=== PATIENT | female | born 1960 | race Caucasian/White ===

== ENCOUNTER 2022-02-20 10:26 | Outpatient (CLI) | payer SELFPAY ==
--- NOTE | 2022-02-20 10:39 | MM_ITS ---
WS: [id number] BILATERAL SCREENING DIGITAL BREAST TOMOSYNTHESIS MAMMOGRAM WITH CAD HISTORY: SCREENING COMPARISON: 04/29/2018 and 07/16/2017 Bilateral CC and MLO views with tomosynthesis and synthetic mammography submitted. Computer aided det ection analyzed. Breast composition: There are scattered areas of fibroglandular density. No suspicious masses, microc alcifications or architectural distortion. Biopsy clip in the anterior upper outer quadrant RIGHT axel ast. MM/[place] [id number] IMPRESSION: BI-RADS: 2-Benign FOLLOW UP: 1 Year Follow-up
== END 2022-02-20 10:27 | disposition home or self-care (01) ==
PROVIDERS: Family Provider Family Medicine; Visit Provider Family Medicine
DX: Z12.31 Encounter for screening mammogram for malignant neoplasm of breast (principal)
CPT/HCPCS: 77063; 77067

== ENCOUNTER → 2024-11-27 13:39 | Outpatient (BNVA) | payer MEDICARE, SELFPAY | PROVIDERS: Family Provider Family Medicine; Referring Provider Family Medicine; Visit Provider Nurse Practitioner Family | DX: L98.8 Other specified disorders of the skin and subcutaneous tissue (principal); L57.8 Other skin changes due to chronic exposure to nonionizing radiation; L81.4 Other melanin hyperpigmentation; D23.72 Other benign neoplasm of skin of left lower limb, including hip; L57.0 Actinic keratosis; L82.1 Other seborrheic keratosis; Z80.8 Family history of malignant neoplasm of other organs or systems | CPT/HCPCS: 99203 ==

== ENCOUNTER 2024-12-18 12:44 | Outpatient (CLI) | payer MEDICARE, SELFPAY ==
--- NOTE | 2024-12-18 13:20 | MM_ITS ---
WS: [id number] BILATERAL SCREENING DIGITAL TOMOSYNTHESIS MAMMOGRAM WITH CAD HISTORY: Screening COMPARISON: 02/20/2022, 04/29/2018 Bilateral CC and MLO views with tomosynthesis and synthetic mammography submitted. Computer aided detection analyzed. Breast composition: The breasts are almost entirely fatty. No suspicious masses, microcalcifications or architectural distortion. Biopsy clip upper outer quadrant RIGHT breast. No suspicious mass or grouping of calcifications. MM/MM scr BI tomosynthesis [id number] IMPRESSION: BI-RADS: 2 - Benign. FOLLOW UP: 1 Year Follow-up
== END 2024-12-18 12:45 | disposition home or self-care (01) ==
LOC: RAD 12:48
PROVIDERS: Family Provider Family Medicine; PCP Family Medicine; Visit Provider Family Medicine
DX: Z12.31 Encounter for screening mammogram for malignant neoplasm of breast (principal); R92.313 Mammographic fatty tissue density, bilateral breasts
CPT/HCPCS: 77063; 77067

== ENCOUNTER → 2024-12-22 10:28 | Outpatient (BNVA) | payer MEDICARE, OTHER, SELFPAY | PROVIDERS: Family Provider Family Medicine; PCP Family Medicine; Referring Provider Family Medicine; Visit Provider Student in an Organized Health Care Education/Training Program | DX: Z12.11 Encounter for screening for malignant neoplasm of colon (principal) | CPT/HCPCS: 80053; 80061; 82306; 82607; 84443; 85025; 99024; 99204 ==

== ENCOUNTER 2025-01-13 08:35 | Day surgery (SDC) | payer MEDICARE, SELFPAY ==
[2025-01-13 08:55] VITALS: BP 137/105; PULSE 113; RESP 19; TEMP 37; O2SAT 97; BMI 27.4
[2025-01-13] MEDS: sodium chloride 0.9% 500 ML 30 ML IV (09:05)
--- NOTE | 2025-01-13 09:40 | ANES.PREANE2 ---
Pre-Anesthetic Assessment Height/Weight: Height 1.63 m Weight 72.575 kg Temp Pulse Resp BP Pulse Ox O2 Del Method 98.6 F 113 H 19 H 137/105 97 Room Air 01/13/25 08:55 01/13/25 08:55 01/13/25 08:55 01/13/25 08:55 01/13/25 08:55 01/13/25 08:55 Preop Diagnosis: screening Operation Date: 01/13/25 10:00 Proposed Procedures p Colonoscopy 81671 G0121 Z12.11(Not Applicable) - Gustabo Del Rosario MD Familial anesthetic complications: none Was Beta Glenn taken within 24 hours: N/A Was Clonidine taken within 24 hours: N/A Last intake: Intake Last Liquid Date 01/12/25 Last Liquid Time 00:00 Last Solid Date 12/22/24 Last Solid Time 10:00 Social Alcohol Marijuana gummies Exam alert, oriented x 3, clear to auscultation bilaterally and regular rate & rhythm Airway Submandibular: within normal limits Cervical ROM: within normal limits Mallampati: Class II Dentition: full History/ROS No significant history except as noted and No significant complaints Pulmonary None reported CV/HEM None reported None reported Hepatic None reported GI None reported Metabolic Thyroid Disease [facility] None reported Neuropsych Anxiety Anesthetic Plan ASA status: 2 Anesthesia: MAC Risk of > 500 ml blood loss (7ml/kg in children): No Medications/Allergies Home Medications ?Medication ?Instructions ?Recorded ?Confirmed ?Last Taken ?Type ascorbic acid (vitamin C) 500 mg 500 mg PO DAILY 12/15/24 01/13/25 01/11/25 History capsule cholecalciferol (vitamin D3) 25 50 mcg PO DAILY 12/15/24 01/13/25 01/11/25 History mcg (1,000 unit) capsule multivitamin 1 tab PO DAILY 12/15/24 01/13/25 01/11/25 History levothyroxine 50 mcg tablet 50 mcg PO DAILY #30 tabs 01/05/25 01/13/25 01/11/25 Rx (Euthyrox) paroxetine HCl 10 mg tablet 10 mg PO DAILY #30 tabs 01/06/25 01/13/25 01/11/25 Rx Allergies Allergy/AdvReac Type Severity Reaction Status Date / Time No Known Allergies Allergy Verified 12/22/24 10:34 Current Medications Generic Name Dose Route Start Last Admin Trade Name Freq PRN Reason Stop Dose Admin Sodium Chloride 500 mls @ 30 mls/hr 01/13/25 09:00 01/13/25 09:05 Sodium Chloride 0.9% IV 01/14/25 01:39 30 mls/hr .[id number] ERICK Administration PFSH Anesthesia Medical History Anxiety Surgical History Hx of breast biopsy Left breast biopsy Hx of squamous cell carcinoma Left arm - 2016 Hx of hysterectomy With BLO - 2002 History of lumbar surgery Low back surgery x 3 - had a knick in the dura leading to a leak and repeat surgery. History of cholecystectomy 1993 Hx of tubal ligation 1980 Family History Mother , in December 2023 CAD (coronary artery disease), Onset Age: 71 [place] x 2 Melanoma Squamous cell carcinoma Father , Gallbladder removed, had a blood clot a week later when he had COVID and . He had COVID pneumonia during this. 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
--- NOTE | 2025-01-13 11:15 | W.PM.OPSUD ---
Surgery/Procedure H&P Update DATE OF PROCEDURE: January 13, 2025 DATE H&P PERFORMED: 12/22/24 H&P UPDATE INFORMATION: I have reviewed H&P completed within last 30 days, I have examined patient prior to procedure and No changes to prior documentation PREOP DIAGNOSIS: screening PLANNED PROCEDURE: Operation Date: 01/13/25 10:00 Proposed Procedures p Colonoscopy 94649 G0121 Z12.11(Not Applicable) - Gustabo Del Rosario MD
[2025-01-13 11:37] VITALS: BP 124/89; PULSE 93; RESP 16; TEMP 36.4; O2SAT 96
[2025-01-13 11:51] VITALS: BP 151/107; PULSE 94; RESP 16; O2SAT 97
--- NOTE | 2025-01-13 12:05 | ANE.PACU2 ---
Inpatient post-anesthesia follow up: Airway intact: Yes Vital signs: Temperature 97.6 F Pulse Rate 94 Respiratory Rate 16 Blood Pressure 151/107 Pulse Oximetry 97 Oxygen Delivery Me thod Room Air Oxygen Flow Rate Fraction of Inspir ed Oxygen Hydration adequate: Yes Nausea and vomiting: No Pain level: 1 Mental status: Baseline
== END 2025-01-13 12:08 | disposition home or self-care (01) ==
PROVIDERS: PCP Family Medicine; Visit Provider Student in an Organized Health Care Education/Training Program
PROC: 0DJD8ZZ Inspection of Lower Intestinal Tract, Via Natural or Artificial Opening Endoscopic (ICD-10-PCS; CPT 45378; principal; 2025-01-13 10:00)
DX: Z12.11 Encounter for screening for malignant neoplasm of colon (principal); D12.4 Benign neoplasm of descending colon; Z79.899 Other long term (current) drug therapy; Z79.890 Hormone replacement therapy
CPT/HCPCS: 45385; 88305; J2704; J7040

== ENCOUNTER → 2025-02-12 14:16 | Outpatient (BNVA) | payer MEDICARE, OTHER, SELFPAY | PROVIDERS: PCP Family Medicine; Visit Provider Student in an Organized Health Care Education/Training Program | DX: Z09 Encounter for follow-up examination after completed treatment for conditions other than malignant neoplasm (principal) | CPT/HCPCS: 99213 ==

== ENCOUNTER → 2025-04-16 11:39 | Outpatient (BNVA) | payer MEDICARE, OTHER, SELFPAY | PROVIDERS: PCP Family Medicine; Visit Provider Family Medicine | DX: E03.9 Hypothyroidism, unspecified (principal) | CPT/HCPCS: 84439; 84443 ==

== ENCOUNTER 2025-05-15 11:22 | Outpatient (CLI) | payer MEDICARE, OTHER, SELFPAY ==
--- NOTE | 2025-05-15 11:25 | XR_ITS ---
WS: [email or web address] Exam: XR shoulder RT min 2V* [id number] Date/Time of Exam: 05/15/2025 11:31 AM Reason For Exam: Right shoulder pain DLP: No acute fracture. The joints are relatively well-maintained. Normal soft tissues. XR/XR shoulder RT min 2V* [id number] IMPRESSION: 1. Negative RIGHT shoulder.
--- NOTE | 2025-05-15 11:25 | XR_ITS ---
WS: [email or web address] Exam: [place] [id number] Date/Time of Exam: 05/15/2025 11:31 AM Reason For Exam: Right arm pain DLP: No fracture noted. Articular relationships at the shoulder and elbow appear normal. Normal soft tissues. XR/[place] [id number] IMPRESSION: 1. Normal RIGHT humerus.
--- NOTE | 2025-05-15 11:25 | XR_ITS ---
WS: [email or web address] Exam: XR knee RT 3V* [id number] Date/Time of Exam: 05/15/2025 11:31 AM Reason For Exam: Knee pain right No fracture. There is chondrocalcinosis of the medial and lateral menisci. Slight narrowing of the medial joint space. No joint effusion. Unremarkable soft tissues. XR/XR knee RT 3V* [id number] IMPRESSION: 1. Chondrocalcinosis of the medial and lateral menisci. Mild degenerative narro wing of the medial joint compartment.
== END 2025-05-15 11:23 | disposition home or self-care (01) ==
LOC: RAD 11:23
PROVIDERS: PCP Family Medicine; Visit Provider Family Medicine
DX: M79.601 Pain in right arm (principal); M25.511 Pain in right shoulder; M11.261 Other chondrocalcinosis, right knee; M17.11 Unilateral primary osteoarthritis, right knee
CPT/HCPCS: 73030; 73060; 73562

== ENCOUNTER → 2025-06-02 13:51 | Outpatient (BNVA) | payer MEDICARE, OTHER, SELFPAY | PROVIDERS: PCP Family Medicine; Visit Provider Nurse Practitioner Family | DX: L82.1 Other seborrheic keratosis (principal); L81.4 Other melanin hyperpigmentation; L57.8 Other skin changes due to chronic exposure to nonionizing radiation; L98.8 Other specified disorders of the skin and subcutaneous tissue; D23.72 Other benign neoplasm of skin of left lower limb, including hip; Z80.8 Family history of malignant neoplasm of other organs or systems; Z08 Encounter for follow-up examination after completed treatment for malignant neoplasm; Z85.828 Personal history of other malignant neoplasm of skin; L57.0 Actinic keratosis | CPT/HCPCS: 17004; 99214 ==

== ENCOUNTER 2025-06-22 12:46 | Outpatient (CLI) | payer MEDICARE, OTHER, SELFPAY ==
--- NOTE | 2025-06-22 13:00 | MR_ITS ---
WS: [id number] MRI RIGHT SHOULDER HISTORY: Right shoulder pain COMPARISON: Radiograph 05/15/2025 TECHNIQUE: Multiplanar sequences of the shoulder joint are submitted. Moderate AC joint arthritis. Small amount of fluid in the subacromial subdeltoid bursa. Minimal subacromial impingement. No os acromion. Fluid in the biceps tendon sheath. No dislocation of the biceps tendon from the bicipital groove. Small amount of fluid surrounding the humeral head extending into the axillary pouch. Supraspinatus tendon is torn and retracted to the medial humeral head. There is a fluid gap directly over the humeral head. A portion of the distal supraspinatus tendon is still present with an interstitial tear. Marked tendinopathy in the distal subscapularis tendon. There is fluid in the rotator cuff interval. Mild atrophy of the supraspinatus muscle. Intrasubstance degeneration in the labrum. MR/MR shoulder RT wo con* [id number] IMPRESSION: 1. Moderate AC joint arthritis. 2. Mild subacromial impingement. 3. Fluid in the biceps tendon sheath but no tear. 4. Complete tear of the supraspinatus tendon with retraction to the medial hum eral head. 5. There is fluid extending into the rotator cuff interval. Biceps tendon over the roof of the rotator cuff interval appears to be intact. 6. Small joint effusion surrounding the humeral head. 7. Tendinopathy distal subscapularis tendon. 8. Exam is compromised by motion.
--- NOTE | 2025-06-22 13:45 | MR_ITS ---
WS: [id number] MRI RIGHT KNEE HISTORY: Right knee pain COMPARISON: Radiograph 05/15/2025 Anterior cruciate ligament: Short segment interstitial tear in the distal ACL. No full-thickness tear. Posterior cruciate ligament: Intact. Medial collateral ligament: Intact. Posterior lateral corner structures: Intact. Medial menisci: Intact. Normal signal, size and shape. Lateral meniscus: Intact. Normal signal, size and shape. Extensor mechanism: Distal quadriceps tendon and patellar tendons are intact. Fluid and soft tissue: No significant joint effusion. Superficial fluid collection anterior to the medial patellar retinaculum. Fluid collection measures 3.7 x 0.8 x 4.7 cm and has a few small septations. Subcutaneous edema along the anterior knee extending over the patellar tendon. No Hamm's cyst. Osseous and articular structures: Patellofemoral compartment: Normal. Medial compartment: Mild narrowing of the medial compartment. Mild thinning and fissuring of the cartilage. No full-thickness defects. Lateral compartment: Mild narrowing of the lateral compartment. Superficial defect along the central lateral tibial plateau. No underlying marrow edema. Very subtle increased signal extending through the tibial metaphysis. There is no fracture identified. MR/MR knee RT wo con* [id number] IMPRESSION: 1. Short segment interstitial tear distal ACL. No complete tear. 2. Very subtle marrow edema along the tibial metaphysis. No fracture. 3. No joint effusion. 4. Superficial fluid collection anterior to the medial patellar retinaculum me asures 3.7 x 0.8 x 4.7 cm with adjacent subcutaneous edema. 5. Mild narrowing of the medial and lateral compartments. 6. Superficial chondromalacia involving the central lateral tibial plateau.
== END 2025-06-22 12:47 | disposition home or self-care (01) ==
LOC: RAD 12:49
PROVIDERS: PCP Family Medicine; Visit Provider Family Medicine
DX: S83.31XA Tear of articular cartilage of right knee, current, initial encounter (principal); M19.011 Primary osteoarthritis, right shoulder; R60.9 Edema, unspecified; X58.XXXA Exposure to other specified factors, initial encounter; M94.261 Chondromalacia, right knee; M62.511 Muscle wasting and atrophy, not elsewhere classified, right shoulder; S46.811A Strain of other muscles, fascia and tendons at shoulder and upper arm level, right arm, initial encounter
CPT/HCPCS: 73221; 73721

== ENCOUNTER → 2025-06-30 14:04 | Outpatient (BNVA) | payer MEDICARE, OTHER, SELFPAY | PROVIDERS: PCP Family Medicine; Visit Provider Student in an Organized Health Care Education/Training Program | DX: M75.101 Unspecified rotator cuff tear or rupture of right shoulder, not specified as traumatic (principal); M19.011 Primary osteoarthritis, right shoulder; M75.41 Impingement syndrome of right shoulder; M75.21 Bicipital tendinitis, right shoulder | CPT/HCPCS: 73030; 99204 ==

== ENCOUNTER → 2025-08-06 10:16 | Day surgery (SDC) | payer MEDICARE, BC, SELFPAY ==
[2025-08-06] VITALS (10 sets, daily range): BP systolic 102–162; BP diastolic 79–102; PULSE 64–80; RESP 17–22; TEMP 36.1–36.3; O2SAT 89–96; BMI 27.4
--- NOTE | 2025-08-06 10:35 | ANES.PREANE2 ---
Pre-Anesthetic Assessment Height/Weight: Height 5 ft 4 in Preop Diagnosis: Rotator cuff tear Operation Date: 08/06/25 12:00 Proposed Procedures p Arthroscopic Shoulder Subacromial Decomp(Right) - Mu Lin DO s Arthroscopic Distal Clavicle Resection Arthroscopic AC Joint Resection(Right) - Mu Lin DO s Arthroscopic Shoulder/ rotatoat cuff Debridement vs rotator cuff repair(Right) - Mu Lin, DO Was Beta Glenn taken within 24 hours: N/A Was Clonidine taken within 24 hours: N/A Social No alcohol and No tobacco Exam alert, oriented x 3, clear to auscultation bilaterally and regular rate & rhythm Airway Submandibular: within normal limits Cervical ROM: within normal limits Mallampati: Class II Dentition: loose Comments: Comments: poor dentition, can see most of her roots. 1 tooth, front left bottom is loose Anesthetic Plan ASA status: 2 Anesthesia: General and Regional (specify below) Other: No prior issues with anesthesia NPO since yesterday evening History of hypothyroidism on Synthroid Denies any cardiac or pulmonary issues METs greater than 4 Plan for general anesthesia with preoperative block Medications/Allergies Home Medications ?Medication ?Instructions ?Recorded ?Confirmed ?Last Taken ?Type ascorbic acid (vitamin C) 500 mg 500 mg PO DAILY 12/15/24 08/05/25 08/05/25 History capsule cholecalciferol (vitamin D3) 25 50 mcg PO DAILY 12/15/24 08/05/25 08/05/25 History mcg (1,000 unit) capsule multivitamin 1 tab PO DAILY 12/15/24 08/05/25 08/05/25 History paroxetine HCl 40 mg tablet 40 mg PO DAILY #30 tabs 05/15/25 08/05/25 08/05/25 Rx oxybutynin chloride 5 mg tablet 5 mg PO BID #60 tabs 07/14/25 08/06/25 08/06/25 09:00 Rx hydrocodone 5 mg-acetaminophen 325 1 tab PO BID PRN pain 15 days #30 07/23/25 08/06/25 08/06/25 09:00 Rx mg tablet tabs naproxen 500 mg tablet 500 mg PO BID PRN pain #60 tabs 07/27/25 08/05/25 07/22/25 Rx levothyroxine 50 mcg tablet 50 mcg PO DAILY 08/05/25 08/06/25 08/06/25 09:00 History hydrocodone 5 mg-acetaminophen 325 1 tab PO Q6H PRN pain 5 days #20 08/06/25 Unknown Rx mg tablet tabs Allergies Allergy/AdvReac Type Severity Reaction Status Date / Time No Known Allergies Allergy Verified 08/06/25 10:37 [facility] Anesthesia Medical History Anxiety Surgical History Hx of breast biopsy Left breast biopsy Hx of squamous cell carcinoma Left arm - 2016 Hx of hysterectomy With BLO - 2002 History of lumbar surgery Low back surgery x 3 - had a knick in the dura leading to a leak and repeat surgery. History of cholecystectomy 1993 Hx of tubal ligation 1980 Family History Mother , in December 2023 CAD (coronary artery disease), Onset Age: 71 [place] x 2 Melanoma Squamous cell carcinoma Father , Gallbladder removed, had a blood clot a week later when he had COVID and . He had COVID pneumonia during this. COVID Social History Smoking and tobacco/nicotine status: never used tobacco/nicotine Alcohol intake: current Alcohol intake frequency: few times a week Alcohol type: wine Substance/Drug Use: current Other substance/drug use details: Marijuana 2x/day Current occupational status: retired Previous occupational history: Homemaker - [employer]
[2025-08-06] MEDS: acetaminophen 1,000 MG/100 ML PIGGYBACK 400 MG IV (11:20)
--- NOTE | 2025-08-06 11:56 | W.PM.OPSFHP ---
Same Day Surgery H&P Indication for Procedure/HPI DATE OF PROCEDURE: August 06, 2025 CHIEF COMPLAINT/INDICATIONFOR SURGICAL PROCEDURE: Right shoulder rotator cuff tear, biceps tendinitis, AC joint arthritis, subacromial impingement PREOP DIAGNOSIS: Right shoulder rotator cuff tear, biceps tendinitis, AC joint arthritis, kidd PLANNED PROCEDURE: Operation Date: 08/06/25 12:00 Proposed Procedures p Arthroscopic Shoulder Subacromial Decomp(Right) - Mu Lin DO s Arthroscopic Distal Clavicle Resection Arthroscopic AC Joint Resection(Right) - Mu Lin DO s Arthroscopic Shoulder/ rotatoat cuff Debridement vs rotator cuff repair(Right) - Mu Lin DO Medications/Allergies* Home Medications ?Medication ?Instructions ?Recorded ?Confirmed ?Type ascorbic acid (vitamin C) 500 mg 500 mg PO DAILY 12/15/24 08/05/25 History capsule cholecalciferol (vitamin D3) 25 50 mcg PO DAILY 12/15/24 08/05/25 History mcg (1,000 unit) capsule multivitamin 1 tab PO DAILY 12/15/24 08/05/25 History levothyroxine 50 mcg tablet 50 mcg PO DAILY 08/05/25 08/06/25 History Allergies/Adverse Reactions Allergy/AdvReac Type Severity Reaction Status Date / Time No Known Allergies Allergy Verified 08/06/25 10:37 Current Medications: Generic Name Dose Route Start Last Admin Trade Name Freq PRN Reason Stop Dose Admin Sodium Chloride 1,000 mls @ 30 mls/hr 08/06/25 10:45 08/06/25 11:19 Sodium Chloride 0.9% IV 08/07/25 10:44 30 mls/hr .[id number] ERICK Administration Pertinent History/Comorbid Conditions* Medical History (Updated 07/04/25 @ 22:53 by Mu Lin DO) Anxiety Surgical History (Updated 12/15/24 @ 14:21 by James Gutierrez MD) Hx of breast biopsy Left breast biopsy Hx of squamous cell carcinoma Left arm - 2016 Hx of hysterectomy With BLO - 2002 History of lumbar surgery Low back surgery x 3 - had a knick in the dura leading to a leak and repeat surgery. History of cholecystectomy 1993 Hx of tubal ligation 1980 Family History (Updated 12/15/24 @ 14:16 by James Gutierrez MD) Father, Gallbladder removed, had a blood clot a week later when he had COVID and . He had COVID pneumonia during this. Mother, in December 2023 COVID Father CAD (coronary artery disease) Mother, Onset Age: 71 [place] x 2 Squamous cell carcinoma Mother Melanoma Mother Social History Smoking and tobacco/nicotine status: never used tobacco/nicotine Alcohol intake: current Alcohol intake frequency: few times a week Alcohol type: wine Substance/Drug Use: current Other substance/drug use details: Marijuana 2x/day Current occupational status: retired Previous occupational history: Homemaker - Farm Pertinent Exam Findings alert, oriented x 3, operative site marked and procedure specific exam findings Please refer to preoperative anesthesia evaluation for heart and lung findings Please refer to detailed orthopedic examination on 06/30/2025 listed below: Patient had received a preoperative block in preop. Right Shoulder Exam: -Normal Cervical spine ROM -Negative Spurling's -Negative Schmidt's -ROM: Actively 160 degrees, pain on end ranges -Pain on abduction -4/5 strength on Joe's with pain -Pain with ER with elbows at the side -5/5 strength ER and IR -Positive Hawkin's impingement -Positive [place]'s? -Positive Speed's -Positive crossover arm Neer's test -TTP over AC joint and anterior shoulder -TTP posterior shoulder -TTP over upper trapezius Recommendations Risks and benefits of procedure reviewed and Patient/family agree to proceed Surgery/Procedure today Other Plans: Plan to proceed to the OR today for a right shoulder diagnostic and surgical arthroscopy with subacromial decompression, acromioclavicular joint resection, rotator cuff debridement versus repair, possible biceps tenotomy versus tenodesis, possible subacromial balloon spacer. Patient understands the ins and outs of the procedure the risk benefits complication alternative surgical nonsurgical treatment options. Understanding risk of surgery patient elects proceed with surgical invention. All questions answered at this time. Coding Level of Care Code Acute Code for Sunil Fwlinnea
--- NOTE | 2025-08-06 11:59 | ANES.PROC ---
Anesthesia Procedures Procedure/Date: 08/06/25 right interscalene nerve block for postoperative pain control Nerve Block ^: Nerve Block 1: Main Anesthesia: other (100mcg fentanyl, 2mg versed) Time Out Performed: Yes Consent: requested by attending/covering physician and from patient Laterality: Right Nerve block location: interscalene Anesthesia monitors applied: pulse oximetry, EKG, BP cuff and oxygen Nerve block position: supine Anesthetic Used: ropivicaine 0.5% Amount of anesthesia used (mL): 30 Ultrasound used to: recognize landmarks Nerve Stimulator Used?: Yes Interscalene/Femoral BLK: other needle (pjunk 4inch) Injection: neg aspiration of heme Patient Tolerated Procedure: well Complications: none Additional Comments: decadron 4mg added to block
[2025-08-06] MEDS: ceFAZolin 2,000 MG in sodium chloride 0.9% (plus) 50 ML 100 MG IV (12:20)
--- NOTE | 2025-08-06 14:35 | PM.OP ---
Operative Report Date of procedure: August 06, 2025 Surgeon: Mu Lin DO Front Elevator Operator: James Lin PA-C: PA was necessary for assistance in this case with shoulder positioning to execute the procedure, assistance with instrumentation, as well as implant fixation when necessary, assist with wound closure and dressing application. Lonnie Procedure: Preoperative diagnosis: Right shoulder rotator cuff tear, biceps tendinitis, AC joint arthritis, subacromial impingement Post-op diagnosis: Right shoulder partial biceps tearing, subacromial bursitis, partial labral tearing, large rotator cuff tear and AC joint arthritis. Procedure done: Right shoulder diagnostic and surgical arthroscopy with arthroscopic?rotator?cuff?repair(large) Right shoulder diagnostic and surgical arthroscopy biceps tenodesis Right shoulder diagnostic and surgical arthroscopy labral debridement Right shoulder diagnostic and surgical arthroscopy acromioclavicular joint resection Right shoulder diagnostic and surgical arthroscopy subacromial decompression (acromioplasty and bursectomy) Surgeon: Mu Lin DO Estimated blood loss: 15mL IV fluids: See anesthesia record Implants: Arthrex loop and tack bicep tenodesis kit 4.75 swivel lock Arthrex 4.75 speed bridge implant system Complications: None Condition: stable Disposition: same day Brief History: Patient been seen and worked up in the outpatient setting for right shoulder pain.? Pt had an MRI which showed findings below.? Patient's failed conservative treatment and has weakness.? We talked about treatment options far as nonoperative and operative intervention. ? We talked about risk benefits complication alternatives surgical nonsurgical treatment options.? Understanding risk of surgery she agrees to proceed with surgical intervention.? All questions have been answered at this time.? Patient elects proceed with surgery and consent obtained in preoperative holding area right shoulder diagnostic and surgical arthroscopy with subacromial decompression, acromioclavicular joint resection, rotator cuff debridement versus repair, possible biceps tenotomy versus tenodesis, possible subacromial balloon spacer. MR/MR shoulder RT wo con* [id number] IMPRESSION: 1. Moderate AC joint arthritis. 2. Mild subacromial impingement. 3. Fluid in the biceps tendon sheath but no tear. 4. Complete tear of the supraspinatus tendon with retraction to the medial humeral head. 5. There is fluid extending into the rotator cuff interval. Biceps tendon over the roof of the rotator cuff interval appears to be intact. 6. Small joint effusion surrounding the humeral head. 7. Tendinopathy distal subscapularis tendon. 8. Exam is compromised by motion. Procedure: Patient seen evaluated in the preoperative holding area.? Consent reviewed and signed with patient.? Once again reviewed patient's MRI results as well as? planned surgical intervention.? Correct extremity marked.? Patient seen evaluated by anesthesia department received regional anesthesia.? Once ready for surgery was taken back to the operative suite.? Patient then subsequently underwent anesthesia per the anesthesia department was transported onto the OR table.? Patient was then placed into a lateral decubitus position with a beanbag and was appropriately secured to the bed.? All bony prominences well-padded.? Patient then had the right upper extremity was then prepped and draped in standard orthopedic fashion.? Patient received appropriate preoperative antibiotics.? Final timeout performed. The right upper extremity was then held in hanging from traction utilizing sterile technique.? Next started with standard diagnostic and surgical arthroscopy with posterior portal position introduced arthroscope into the glenohumeral joint.? Visualized the glenohumeral joint I then introduced a spinal needle within the?rotator?cuff?interval to confirm appropriate anterior portal placement.? Once this was confirmed I then made my small incision and then introduced my arthroscopic shaver into the glenohumeral joint.? for After flushing the joint fluid, was clearly evident patient had biceps tendon tearing as well as Superior labral tear. Patient had appreciable unstable biceps anchor most pronounced in the superior labrum. Given there appears to be healthy intra-articular tendon plan was for an intra-articular biceps tenodesis at the superior portion as it enters the intertubercular groove. Thermal wand introduced into the rotator interval. I then release of the rotator interval to have appropriate visualization and the ability to perform biceps tenodesis. At this point I established a purple passport cannula which was introduced. Next I performed an Arthrex loop and tap biceps tenodesis. Passer was then made around the tendon luggage tag stitch around and then thru the tendon , I then utilized a thermal wand to release the biceps tendon at the anchor to perform with tenotomy. I then loaded with suture onto an Arthrex 4.75 swivel lock suture anchor. A punch was then placed in appropriate position at the entry point into the intertubercular groove just superior to the subscapularis tendon. Punch was then introduced to the appropriate depth. The suture loaded on the swivel lock was then advanced held under appropriate tension and shoulder lock anchor was then advanced and had excellent fixation. Excess suture was then cut biceps tenodesis was complete. I then utilized a thermal wand to seal the edges of the superior labrum. Next I evaluated the subscapularis tendon which was intact and no evidence of?tear. ?Next there was significant labral?tearing at biceps anchor and circumferential.? ? I then subsequently utilized a a arthroscopic shaver and thermal wand to perform a labral debridement.? This point time I then visualized the glenohumeral joint.? The glenohumeral joint was found to have grade 1-2? chondromalacia throughout.? Axillary pouch was free of loose bodies from viewing the posterior portal.? Next a visualized the?rotator?cuff?superiorly and there was found to be a tearing of the supraspinatus tendon.? I utilized a spinal needle to manolo this location.?? This completed my work within the glenohumeral joint all fluid was suctioned free of the joint.? ?Next I reintroduced the arthroscope posteriorly.? And went to the subacromial space.? I established my lateral working portal at the site of which my spinal needle was marking of the?rotator?cuff?tear.? Thermal wand was then introduced laterally and then I subsequently performed extensive bursectomy of the subacromial space.? Patient had a large anterior bone spur.? At this point time I proceeded with my AC joint resection thermal wand was used and track to the anterior edge of the acromion and then tracked all the way to the AC joint.? Once identified the AC joint this was very arthritic in nature.? Thermal wand was placed anteriorly to establish appropriate plane for AC joint resection.? Once appropriate margins and anterior inferior and anterior capsule was released I then introduced arthroscopic shaver and a bur and performed AC joint resection of both the acromion to cope plane at the AC joint and a distal clavicle resection was then performed totaling 1 cm in size and was confirmed.? This completed my AC joint resection and I then introduced the arthroscopic shaver laterally while continuing to view posteriorly.? I then performed an acromioplasty to complete my subacromial decompression prior to fixing the?rotator?cuff?tear.? Next the arthroscopic shaver was then used previous spinal needle spot that is marked the hole in the?rotator?cuff?this was consistent with a full-thickness?tear large in nature. Plan was for a double row repair with 2 anchors medially and 1 anchor laterally as this was more on the anterior portion of the distal supraspinatus tendon. At this point in time I subsequently prepped the repair site utilizing a power rasp and removed all scar tissue adhesions and had good bleeding bone. Once this was then performed I utilized a spinal needle directly off the acromion manage for a man's angle for the punches to set the anchors. I then subsequently made a sharp scalpel incision and used a blunt probe and then subsequently advance the punch and subsequently placed 2 medial row 4.75 swivel lock anchors which had excellent fixation I subsequently cut the assuaged suture tapes with a total of 4 suture tapes with the 2 anchors. I then loaded these sequentially with the scorpion and passed these an anterior to posterior fashion along the supraspinatus tear. At this point in time I then subsequently pulled these and had appropriate coverage and could not load these all-in-one anchor which helped set my positioning for my lateral row anchor. At this point in time I cleared off the lateral footprint off the greater tuberosity for the lateral row anchor. I then subsequently loaded all 4 stitches and a 4.75 swivel lock I subsequently punched and then holding appropriate repair tension bringing the rotator cuff over to the prepped wound bed advance the 4.75 swivel lock holding my attention and had excellent fixation and good coverage of the rotator cuff consistent with a satisfactory rotator cuff repair. At this point time sutures were tied and had good security of the suture anchor. At this point time all excess suture was removed with arthroscopic suture cutter. This completed the repair.. Subsequently evaluated the?rotator?cuff?repair.? Repair was found to be satisfactory shoulder was taken through range of motion and the repair moved as a unit with no evidence of loss of fixation. ?I then switched the arthroscope to the lateral portal to confirm this tension-free repair.? I took the shoulder through range of motion and the?rotator?cuff?repair was stable and moved as a unit. ?Next I then introduced the arthroscopic shaver posteriorly to complete my subacromial decompression appropriate complaining all the way up to the lateral edge of the acromion.? This completed the surgery.? All fluid was suctioned from the shoulder.? All instruments were removed.? The lateral incision was then closed with nylon stitches.? As well as the portal sites closed with portal nylon stitches.? Xeroform 4 x 4's ABD and tape was then applied to the right shoulder and was placed into a shoulder abduction pillow sling for?rotator?cuff?repair.? Patient was then awakened from anesthesia and then taken back to PACU in stable condition.? Patient tolerated procedure without any issues. Disposition: Patient taken back in stable condition recovering well.? Dressings on in place clean dry and intact.? Will be nonweightbearing to the right upper extremity.? Follow?rotator?cuff?repair protocol.? Patient to follow-up with me in the office in 2 weeks.? Patient will receive appropriate discharge instruction as well as pain medication postoperatively.? All questions answered.? We will contact the office for any questions or concerns.
--- NOTE | 2025-08-06 14:37 | ANE.PACU2 ---
Inpatient post-anesthesia follow up: Airway intact: Yes Vital signs: Temperature 97.3 F Pulse Rate 66 Respiratory Rate 18 Blood Pressure 162/102 Pulse Oximetry 96 Oxygen Delivery Me thod Room Air Oxygen Flow Rate Fraction of Inspir ed Oxygen Hydration adequate: Yes Nausea and vomiting: No Pain level: 1 Mental status: Baseline
--- NOTE | 2025-08-06 14:39 | P.BOP_ITS ---
Date of Procedure: [August 14, 2025] Surgeon: [Dr. Lin DO] [employer] Systems Designer(s): [James Lin PA-C] Procedure(s) performed: [Right shoulder diagnostic surgical arthroscopy Biceps tenodesis Labral debridement Large rotator cuff repair AC joint resection Subacromial decompression] Findings of the procedure(s): [Right shoulder partial biceps tearing, subacromial bursitis, partial labral tearing, large rotator cuff tear and AC joint arthritis. Procedure went well and is planned.] Estimated blood loss: [15 mL] Specimen(s) removed: [N/A] Post-operative diagnosis: [Right shoulder partial biceps tearing, subacromial bursitis, partial labral tearing, large rotator cuff tear and AC joint arthritis. ]
--- NOTE | 2025-08-06 14:41 | PM.PACU ---
PACU note Narrative: Patient is a 65-year-old female that just underwent a right shoulder diagnostic and surgical arthroscopy with rotator cuff repair. Patient transferred to PACU in stable condition. Pain is well controlled. shoulder Dressing on , dry and in place. Patient's operative arm is in a shoulder immobilizer. Patient is awake and alert and able to respond to my questions accordingly. Patient's fingers are warm with good perfusion. Normal cap refill under 2 seconds. Unable to assess further range of motion in arm due to sling. Unable to assess sensation due to residual block. Exam: awake Disposition: discharged
== END | disposition home or self-care (01) ==
PROVIDERS: PCP Family Medicine; Visit Provider Student in an Organized Health Care Education/Training Program
PROC: (CPT 29826; principal; 2025-08-06 11:50)
PROC: (CPT 29824; 2025-08-06 11:50)
PROC: (CPT 29805; 2025-08-06 11:50)
PROC: (CPT 29828; 2025-08-06 11:50)
PROC: (CPT 29828; 2025-08-06 11:50)
DX: M75.41 Impingement syndrome of right shoulder (principal); M75.101 Unspecified rotator cuff tear or rupture of right shoulder, not specified as traumatic; M19.011 Primary osteoarthritis, right shoulder; M75.51 Bursitis of right shoulder; M75.21 Bicipital tendinitis, right shoulder; S46.211A Strain of muscle, fascia and tendon of other parts of biceps, right arm, initial encounter; S43.431A Superior glenoid labrum lesion of right shoulder, initial encounter; X58.XXXA Exposure to other specified factors, initial encounter; F41.9 Anxiety disorder, unspecified; Z85.828 Personal history of other malignant neoplasm of skin; E03.9 Hypothyroidism, unspecified; Z79.891 Long term (current) use of opiate analgesic
CPT/HCPCS: 29828; 29824; 29823; 64415; A7003; C1713; J0131; J0169; J0690; J1100; J1885; J2250; J2405; J2704; J3010; J3490; J7030; J9999

== ENCOUNTER → 2025-08-19 13:48 | Outpatient (BNVA) | payer MEDICARE, BC, SELFPAY | PROVIDERS: PCP Family Medicine; Visit Provider Physician Assistant | DX: Z98.890 Other specified postprocedural states (principal) | CPT/HCPCS: 99024 ==